=== PATIENT | male | born 1940 | race Caucasian/White ===

== ENCOUNTER 2019-05-01 07:21 | Day surgery (SDC) | payer BC ==
[~2019-05-01] VITALS: Ht 175.3 cm; Wt 106.8 kg
[~2019-05-01 07:21] MED LIST: AMIT25 PO; Aspir 8181 MG PO; Daily Multiple1 EACH PO; GABA300 PO; IBUP800 PO; LIVALO2 MG PO; METF500C PO; Mobic15 MG PO; NEBI5 PO; OMEPRAZOLE20 MG PO
--- NOTE | 2019-05-01 07:57 | NUR ---
05/01/19 [id number] Sergio Kelley CALL LIGHT WITHIN REACH. FAMILY AT BEDSIDE.
== END 2019-05-01 09:31 | disposition home or self-care (01) ==
LOC: ORSCSDS 07:21
PROVIDERS: Ophthalmology
PROC: 08RK3JZ Replacement of Left Lens with Synthetic Substitute, Percutaneous Approach (ICD-10-PCS; principal; 2019-05-01 08:30)
DX: H25.12 Age-related nuclear cataract, left eye (principal); I10 Essential (primary) hypertension; I48.91 Unspecified atrial fibrillation; G47.33 Obstructive sleep apnea (adult) (pediatric); Z79.899 Other long term (current) drug therapy
CPT/HCPCS: J2001; J2250; J3010; J3301; J7040; V2632

== ENCOUNTER 2019-08-07 07:46 | Day surgery (SDC) | payer BC ==
[~2019-08-07] VITALS: Ht 175.3 cm; Wt 108.4 kg
--- NOTE | 2019-08-07 10:09 | NUR ---
08/07/19 Avril Crow TRANSFERRED TO CHAIR WITHOUT PROBLEM. FLUID AND FOOD TOLERATED. NO PAIN OR NAUSEA. IV DISCONTINUED. VSS. LUNGS CLEAR. DISCHARGED HOME WITH SPOUSE.
== END 2019-08-07 09:48 | disposition home or self-care (01) ==
LOC: ORSCSDS 07:46
PROVIDERS: Ophthalmology
PROC: 08RJ3JZ Replacement of Right Lens with Synthetic Substitute, Percutaneous Approach (ICD-10-PCS; principal; 2019-08-07 09:00)
DX: H25.11 Age-related nuclear cataract, right eye (principal); I10 Essential (primary) hypertension; I48.91 Unspecified atrial fibrillation; E78.5 Hyperlipidemia, unspecified; Z79.899 Other long term (current) drug therapy; E66.9 Obesity, unspecified; Z68.34 Body mass index [BMI] 34.0-34.9, adult
CPT/HCPCS: 82947; J2001; J2250; J3010; J3301; J7040; V2632